=== PATIENT | male | born 1970 | race Caucasian/White ===

== ENCOUNTER 2020-09-23 13:03 | Observation (INO) ==
[2020-09-23] MEDS ORDERED: NITROGLYCERIN 2% OINTMENT 30GM TUBE EXT ONE (14:03)
[2020-09-23] MEDS ORDERED: ASPIRIN CHEW 324 MG PO STA (14:03)
[2020-09-23 14:13] LABS: Basophils # (auto) 0.02 K/uL (0-0.2); Basophils % (auto) 0.3 %; Eosinophils # (auto) 0.12 K/uL (0-0.5); Eosinophils % (auto) 1.7 %; Hematocrit (blood only) 44.5 % (42-52); Hemoglobin 15.2 g/dL (14.0-18.0); Immature Granulocytes # (auto) 0.02 K/uL (0.00-0.02); Immature Granulocytes % (auto) 0.3 %; Mean Corpuscular Hemoglobin 30.3 pg (25-34); Mean Corpuscular Hgb Conc 34.2 g/dL (32-36); Mean Corpuscular Volume 88.6 fL (80-100); Mean Platelet Volume 8.9 fL (7.4-10.4); Monocytes # (auto) 0.57 K/uL (0.11-0.59); Neutrophils # (auto) 3.91 K/uL (1.4-6.5); Neutrophils % (auto) 54.7 %; Platelet Count 173 K/uL (130-400); RDW Coefficient of Variation 13.3 % (11.5-14.5); RDW Standard Deviation 43.1 fL (36.4-46.3); Red Blood Count 5.02 M/uL (4.7-6.1); White Blood Count 7.14 K/uL (4.8-10.8)
[2020-09-23 14:33] LABS: Albumin Level 3.8 gm/dl (3.4-5.0); BUN Creatinine Ratio 16.3 (10-20); Calcium 8.6 mg/dl (8.5-10.1); Est GFR (African American) 87.1; Est GFR (Non-African American) 75.1
[2020-09-23 14:40] LABS: Albumin Globulin Ratio 1.2 (0.9-2); Bilirubin,Total 0.7 mg/dl (0.2-1); Globulin 3.1 gm/dl (2.5-4.0); Total Protein 6.9 gm/dl (6.4-8.2); Troponin I 0.145 ng/ml (0-0.045)
--- NOTE | 2020-09-23 14:43 | XRay Report ---
XR chest 1V portable CLINICAL HISTORY: Dyspnea COMPARISON STUDY: Chest radiograph December 21, 2007. FINDINGS: Lung volumes are normal. Lungs are clear. There is no pneumothorax or pleural effusion. Car diac size is at the upper limits of normal. Mediastinal contours are normal. There is no evidence for pulmonary edema. IMPRESSION: No acute cardiopulmonary findings. ACT 112: Negative or not required by law. Electronically signed by: Jeet Barajas M.D. 09/23/2020 2:42 PM
[2020-09-23] MEDS ORDERED: Heparin IV Adult Wt-Based Low-Dose WITH Bolus Protocol IV STA (14:49)
[2020-09-23] MEDS ORDERED: HEPARIN SODIUM/DEXTROSE 25,000 UNITS/500 ML BAG IV SCH (15:00)
[2020-09-23 15:28] LABS: Partial Thromboplastin Ratio 0.8; Partial Thromboplastin Time 23.6 Seconds (21.0-31.0); Prothrombin Time 10.3 Seconds (9.0-12.0)
[2020-09-23] MEDS ORDERED: Heparin BOLUS **ED Use Only IV STA (16:06)
[2020-09-23] MEDS ORDERED: niCARdipine HCL INJ 2.5 MG/ML 10 ML AMP ONE (16:55)
[2020-09-23] MEDS ORDERED: MIDAZOLAM HCL 1 MG/ML 2ML VIAL ONE (16:55)
[2020-09-23] MEDS ORDERED: HEPARIN (PORCINE) 1000 UNIT/ML 10 ML (CATH LAB USE ONLY) ONE ×2 (16:55→17:46)
[2020-09-23] MEDS ORDERED: NITROGLYCERIN/D5W 100MCG/ML 20ML SYR ONE (16:56)
[2020-09-23] MEDS ORDERED: fentaNYL citrate 100 MCG/2 ML VIAL ONE (16:56)
--- NOTE | 2020-09-23 17:16 | Pre Anesthesia Assessment ---
Date of Service September 23, 2020 Pre Sedation Assessment Vital Signs Temp Pulse Resp BP Pulse Ox 09/23/20 16:31 100 H 20 95 09/23/20 16:30 85 20 129/78 93 09/23/20 16:01 75 20 94 09/23/20 16:00 76 21 129/80 94 09/23/20 15:31 80 25 H 96 09/23/20 15:30 78 19 140/88 97 09/23/20 15:01 82 24 98 09/23/20 15:00 82 18 160/95 H 96 09/23/20 14:31 75 22 97 09/23/20 14:30 65 17 151/96 H 97 09/23/20 14:12 68 26 H 151/94 H 95 09/23/20 14:10 94 09/23/20 14:01 81 18 09/23/20 14:00 69 25 H 145/92 H 96 09/23/20 13:33 69 20 95 09/23/20 13:30 73 23 173/90 H 93 09/23/20 13:27 94 09/23/20 13:22 98.2 F 69 18 136/80 94 Cardiovascular RRR, no murmur, no edema Respiratory normal respiratory effort, lungs clear to auscultation Pre-Sedation Airway Assessment Smoking Status: Never smoker Hx Sleep Apnea: No Hx Difficult Intubation: No Short, Thick Neck: No Thyromental Distance: > or= 3.5 Finger Breadths Oral Cavity: + WNL Mallampati Class: III ASA: ASA3 Procedure Planning Contraindications for Sedation: none Current Medications Reviewed: Yes Notes The planned sedation has been discussed with the patient. Informed Consent was obtained. I have identified the patient, determined the appropriateness of sedation and have assessed the patient immediately prior to the procedure. All medicine(s) and interventions are by my order.
[2020-09-23] MEDS ORDERED: TICAGRELOR 90 MG TAB PO ONE (17:52)
[2020-09-23] MEDS ORDERED: ACETAMINOPHEN 325 MG TAB PO PRN (18:51)
[2020-09-23] MEDS ORDERED: ONDANSETRON INJ 2 MG/ML 2 ML VIAL IV PRN (18:51)
[2020-09-23] MEDS ORDERED: NITROGLYCERIN SL 0.4 MG/TAB TAB SL PRN (18:51)
--- NOTE | 2020-09-23 18:51 | Post Anesthesia Assessment ---
Date of Service September 23, 2020 Post Sedation Assessment Vital Signs Temp Pulse Pulse Resp BP BP Pulse Ox 09/23/20 18:47 65 18 128/75 92 09/23/20 16:31 100 H 20 95 09/23/20 16:30 85 20 129/78 93 09/23/20 16:01 75 20 94 09/23/20 16:00 76 21 129/80 94 09/23/20 15:31 80 25 H 96 09/23/20 15:30 78 19 140/88 97 09/23/20 15:01 82 24 98 09/23/20 15:00 82 18 160/95 H 96 09/23/20 14:31 75 22 97 09/23/20 14:30 65 17 151/96 H 97 09/23/20 14:12 68 26 H 151/94 H 95 09/23/20 14:10 94 09/23/20 14:01 81 18 09/23/20 14:00 69 25 H 145/92 H 96 09/23/20 13:33 69 20 95 09/23/20 13:30 73 23 173/90 H 93 09/23/20 13:27 94 09/23/20 13:22 98.2 F 69 18 136/80 94 Recovery Score Activity: Moves 4 extremities Respiration: Deep Breath/Cough Circulation: +/-20% PreAnes Value Consciousness: Fully Awake Oxygen Saturation: O2 needed for >90% Discharge Sedation Level of Care: Fast Track Phase II Post Sedation Plan On clinical assessment, the patient appears to have tolerated the sedation without complications. Patient is recovering as anticipated. Patient will continue to be monitored by nursing and may be discharged when sedation discharge criteria are met per below protocol. Upon Completions of procedure up to 15 minutes continue every 5 minute vital signs and the P.A.R. score; then discharge to a Phase I or Fast Track to Phase II per the following guidelines: * Discharge Patient to appropriate Phase II area if PAR is 8 or greater or retur n to pre- procedure baseline. The post - procedure orders will be as directed. * If PAR score is less than 8 or not return to pre-procedure baseline then patient will follow Phase I monitoring till PAR is reached for Phase II. The Phase I may be done in procedure room or may call to secure a Phase I area. * If naloxone or flumazenil are used for reversal, hold in Phase I for continued monitoring from when last reversal dose was given for a minimum of 60 minutes or longer pending the nurse and/or physician discretion of patient condition before discharge to Phase II. Please call the Sedation Physician to re-evaluate and complete post-note for discharge to Phase II area. Do NOT discharge from procedure sedation or Phase 1 until post- sedation evaluation note is complete by procedure /sedation MD Sedation Discharge Instructions to be given to the patient at discharge to home.
[2020-09-23] MEDS ORDERED: SODIUM CHLORIDE 0.9% 1000ML 1,000 ML IV SCH (19:00)
[2020-09-23] MEDS: METOPROLOL TARTRATE 25 MG TAB PO SCH (20:56)
[2020-09-23 22:46] LABS: Partial Thromboplastin Ratio 1.1; Partial Thromboplastin Time 29.4 Seconds (21.0-31.0)
--- NOTE | 2020-09-23 22:51 | Cardiology Consultation ---
Date of Consultation September 23, 2020 Assessment & Plan (1) NSTEMI (non-ST elevated myocardial infarction): 2. Type 2 diabetes Presentation consistent with NSTEMI and recommend proceeding with cardiac catheterization. Discussed risk and benefits, alternatives of procedure and is willing to proceed. Further recommendations pending findings of catheterization. History of Present Illness History of Present Illness Mr. Mcfadden is a very pleasant 50-year-old man seen in the emergency department for NSTEMI. No prior cardiac history. History of type 2 diabetes, GERD. No prior surgical history. Lifelong non-smoker. Intermittent exertional chest discomfort began approximately 3 weeks ago while out doing yard work. A few brief similar episodes until last 2 days when has had multiple episodes with less exertion. Describes episodes occurring yesterday which is walking. Again had an episode today while walking at work that persisted for approximately 30 minutes. In ED hypertensive to the 150s on presentation. No chest pain but ongoing left pain which resolved with nitroglycerin. Initial ECG showed normal sinus rhythm with subtle convex ST elevation in V1, V2, initial troponin elevated at 0.145. Family history: No premature CAD Social history: . No tobacco or significant alcohol. 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 [employer] Allergies Allergy/AdvReac Type Severity Reaction Status Date / Time Penicillins Allergy Unknown Verified 09/23/20 19:16 Home Medications Medication Instructions Recorded Confirmed Type alogliptin 25 mg PO QAM 09/23/20 09/23/20 History cholecalciferol (vitamin D3) 25 mcg PO DAILY 09/23/20 09/23/20 History metformin 1,000 mg PO BIDM 09/23/20 09/23/20 History omeprazole 20 mg PO QAM 09/23/20 09/23/20 History Patient History Medical History (Updated 09/23/20 @ 22:48 by Haja Mi MD) Abnormal blood chemistry Abnormal glucose Dermatitis Encounter for screening for malignant neoplasm of prostate Obesity Family History (Updated 04/12/19 @ 09:28 by Talisha Grant) Father Diabetes Hyperlipidemia Mother Asthma Brother No problems noted. 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 Beliefs That Will Affect Care: None marital status: Current Living Situation: Spouse current occupational status: employed Other Information That Helps Us Care for You: No Feels Safe at Home: Yes Safety Concerns: Feels Safe At This Time Assistive Devices: None Review of Systems Review of Systems: All systems reviewed & are unremarkable except as noted in HPI & below Physical Exam Physical Exam: General: Comfortable, no acute distress Eyes: Sclerae anicteric, extraocular movements intact HENT: Mask in place Lungs: Clear to auscultation bilaterally Cardiac: Regular rate and rhythm, no murmurs Vascular: 2+ radial, DP pulses Abdomen: Soft, nontender, nondistended, positive bowel sounds. Extremities: Well perfused, no peripheral edema Skin: No rashes or lesions. Neuro: Nonfocal Psych: Alert orient x3, normal affect and mood Results & Data ([facility]) Vital Signs (Past 12 Hours) Vital Signs Temp Pulse Resp BP Pulse Ox 09/23/20 16:31 100 H 20 95 09/23/20 16:30 85 20 129/78 93 09/23/20 16:01 75 20 94 09/23/20 16:00 76 21 129/80 94 09/23/20 15:31 80 25 H 96 09/23/20 15:30 78 19 140/88 97 09/23/20 15:01 82 24 98 09/23/20 15:00 82 18 160/95 H 96 09/23/20 14:31 75 22 97 09/23/20 14:30 65 17 151/96 H 97 09/23/20 14:12 68 26 H 151/94 H 95 09/23/20 14:10 94 09/23/20 14:01 81 18 09/23/20 14:00 69 25 H 145/92 H 96 09/23/20 13:33 69 20 95 09/23/20 13:30 73 23 173/90 H 93 09/23/20 13:27 94 09/23/20 13:22 98.2 F 69 18 136/80 94 PG Care Time/CCT Total # of Minutes Spent Total Time Spent with Patient: Total time spent is greater than 50% in coordination of care (as documented) at patient's floor/unit and/or counseling patient: Coding Level of Care Code 71972 Inpt Consult Level 4 Diagnoses NSTEMI (non-ST elevated myocardial infarction) I21.4
--- NOTE | 2020-09-23 23:06 | Cardiac Catheterization ---
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 Cardiac Status Clinical evaluation leading to the procedure CAD Presenation: Non STEMI Anginal Classification: CCS IV Heart Failure: No Cardiogenic Shock within 24 Hours: No Cardiac Arrest within 24 Hours: No Imaging Studies Past 6 Months: No Stress Studies Past 6 Months: No Diagnostic Physicians Name: London Mi MD Status: Urgent Closure Device Percutaneous Entry Location: Radial Closure Device: Radial Band Recommendations: PCI without planned CABG PCI Indication: PCI for high risk Non-YARON Lesion Segment Name: Proximal LAD Culprit Artery: Yes Stenosis Prior to Rx (%): 95 Chronic Total Occlusion: No IVUS: No FFR: No Pre-Procedure ZULMA Flow: 3 Previously Treated Lesion: No Lesion Complexity: Non-High/Non-C Lesion Length (mm): 15 Thrombus Present: Yes Bifurcation Lesion: Yes Guidewire Across Lesion: Stenosis Post-Procedure (%): 0 Post-Procedure ZULMA Flow: 3 Devices(s) Deployed: Yes Yes Intraprocedure Events Significant Disection: No Perforation: No Cardiac Cath Procedure Full Procedure Date September 23, 2020 Pre-Procedure Diagnosis Pre-Procedure Diagnosis: Non STEMI AUC Score AUC Score: 8 Post-Procedure Diagnosis Post-Procedure Diagnosis: Severe CAD, Successful PCI and Normal Intracardiac Pressures Procedure(s) Performed Procedure(s) Performed: Coronary Angiography, Left Heart Cath and Drug Eluting Stent Charging Car Operator London Mi MD Fingernail Technician(s) Connor Estimated Blood Loss Estimated Blood Loss: 10 Medication(s) Medication(s): Fentanyl, Heparin, Lidocaine 1%, Nicardipine, Nitroglycerin and Versed Medication(s): Ticagrelor Summary of Findings Indication: High risk NSTEMI Access: 6 Fr slender right radial artery Catheters: Hunter, EBU 3.5 Findings: LM -normal caliber, no significant disease LAD -medium caliber, 95% acute proximal stenosis, 20 to 30% mid segment disease, distal vessel wraps around apex Circumflex -large caliber, distal luminal irregularities. Large OM 2 without significant disease. RCA -dominant, large caliber, 20 to 30% distal disease extending into right PAV branch LVEDP -16 -- PCI -- Antithrombotic therapy: Heparin, ticagrelor Procedure: Left main cannulated with EBU 3.5 guide Histopath Tech 50 wire passed across lesion into distal vessel Proximal LAD lesion predilated with 2.5 compliant balloon Dilated lesion stented with 3.5 x 23 mm Xience Leana drug-eluting Stent post-dilated with 3.75 noncompliant balloon IC vasodilators administered for spasm Post procedure ZULMA 3 flow, stent well expanded with minimal residual stenosis and no apparent cardiac complications. Arterial Closure: TR band Summary: 1. Severe single vessel coronary artery disease -95% acute proximal LAD stenosis 2. Mild nonculprit coronary artery disease 20 to 30% distal RCA 20 to 30% mid LAD 3. Normal intracardiac filling pressure 4. Successful PCI of proximal LAD with single drug-eluting stent (3.5 x 23 mm Xience; postdilated with 3.75 NC). 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 Continue statin, and ASCVD risk factor modification Consult cardiac Rehab Hemodynamics Rest Ao:: 112/78/99 Final Ao: 109/74/90 LV: 123/16 Recommendations Recommendations: PCI without planned CABG Specimens Specimens: None Radiation Exposure (mGy) 2809 Contrast (mls) 140 Fluids (cc crystalloids) Fluids (cc crystalloids): 75 Drains Drains: None Anesthesia Moderate Procedural Complication(s) None Disposition PCU I attest to the content of the Intraoperative Record and any orders documented therein. Any exceptions are noted below. [facility] Card Cath Procedure Codes Cardiac Catheterization Procedure 1: Cardiovascular Cath Procedures: 38700 Coronaries and LHC (+/-LV) Moderate Sedation Procedure 1: Sedation/Anesthesia: 28689 Mod Sedation by the same physician;Init15 Min Child Age 5 & Up Procedure 2: Sedation/Anesthesia: 05036 Mod Sedation by the same physician; Ea [id number] Minutes Stenting Procedure 1: Cardiovascular Stent Procedures: 94668 Perc transcatheter placement of intracoronary stent(s), with ang PG Care Time/CCT Total # of Minutes Spent Total Time Spent with Patient: Total time spent is greater than 50% in coordination of care (as documented) at patient's floor/unit and/or counseling patient:
[2020-09-24 01:36] LABS: Appearance Urine Clear (Clear); Bilirubin Urine Negative (Negative); Blood Urine Negative (Negative); Color Urine Yellow; Glucose Urine UA Trace (Negative); Ketones Urine Trace (Negative); Leukocyte Esterase Urine Negative (Negative); Nitrite Urine Negative (Negative); Protein Urine Negative (Negative); Specific Gravity Urine 1.045 (1.000-1.030); Urobilinogen Urine Negative (Negative); pH Urine 7.5 (4.5-7.5)
--- NOTE | 2020-09-24 05:33 | Electrocardiogram Report ---
Test Reason : Blood Pressure : / mmHG Vent. Rate : 064 BPM Atrial Rate : 064 BPM P-R Int : 158 ms QRS Dur : 080 ms QT Int : 392 ms P-R-T Axes : 061 060 062 degrees QTc Int : 404 ms Normal sinus rhythm Nonspecific ST abnormality Abnormal ECG When compared with ECG of 21-DEC-2007 23:29, No significant change was found Confirmed by Karl Cavanaugh ([id number]) on 09/24/2020 5:33:05 AM Referred By: REFERRED SELF Confirmed By:Karl Cavanaugh
[2020-09-24] MEDS ORDERED: TICAGRELOR 90 MG TAB PO SCH ×3 (06:00→21:00)
--- NOTE | 2020-09-24 06:42 | Emergency Department Note ---
History of Present Illness General Chief complaint: Shortness of Breath/Dyspnea Stated complaint: SOB,CHEST TIGHTNESS Source: patient and RN notes reviewed Mode of arrival: ambulatory Limitations: no limitations History of Present Illness Provider complaint: Chest pain Maximum Pain Intensity: 2 This pt is a 50 yo male who presents to the ED with L CP just distal to the breast. He c/o a numb and tingling type discomfort in the L arm as well. 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 He has had intermittent symptoms since the end of Aug, with BENITEZ and diaphoresis. He rests when the symptoms occur, which typically resolves them. He denies recent illness, cough, fever, vomiting, diarrhea. Of note pr was recently dx as diabetic. Home Medications Medication Instructions Recorded Confirmed Type alogliptin 25 mg PO QAM 09/23/20 09/23/20 History cholecalciferol (vitamin D3) 25 mcg PO DAILY 09/23/20 09/23/20 History metformin 1,000 mg PO BIDM 09/23/20 09/23/20 History omeprazole 20 mg PO QAM 09/23/20 09/23/20 History Allergies Allergy/AdvReac Type Severity Reaction Status Date / Time Penicillins Allergy Unknown Verified 09/23/20 19:16 Past Med/Surg History Medical History Abnormal blood chemistry Abnormal glucose Dermatitis Encounter for screening for malignant neoplasm of prostate Obesity Family History Father Diabetes Hyperlipidemia Mother Asthma Brother No problems noted. 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 and A total of 10 systems reviewed and were otherwise negative Physical Exam Vital Signs Vital Signs - 24 hr 09/23/20 13:22 09/23/20 13:27 09/23/20 13:30 Temperature 36.8 C Temperature Source Oral Pulse Rate 69 73 Pulse Rate from SpO2 Sensor 71 Respiratory Rate 18 23 Blood Pressure 136/80 173/90 H Blood Pressure Mean 98 111 Pulse Oximetry 94 94 93 Oxygen Delivery Method Room Air Room Air Room Air Sepsis Recent Fever Within 48 Hours No Sepsis New/Unexplained Change in Mental Status N/A Sepsis Action Taken by Nursing No Action Required 09/23/20 13:33 09/23/20 14:00 09/23/20 14:01 Temperature Temperature Source Pulse Rate 69 69 81 Pulse Rate from SpO2 Sensor 69 Respiratory Rate 20 25 H 18 Blood Pressure 145/92 H Blood Pressure Mean 108 Pulse Oximetry 95 96 Oxygen Delivery Method Room Air Room Air Sepsis Recent Fever Within 48 Hours Sepsis New/Unexplained Change in Mental Status Sepsis Action Taken by Nursing 09/23/20 14:10 09/23/20 14:12 09/23/20 14:30 Temperature Temperature Source Pulse Rate 68 65 Pulse Rate from SpO2 Sensor 68 65 Respiratory Rate 26 H 17 Blood Pressure 151/94 H 151/96 H Blood Pressure Mean 108 104 Pulse Oximetry 94 95 97 Oxygen Delivery Method Room Air Room Air Room Air Sepsis Recent Fever Within 48 Hours Sepsis New/Unexplained Change in Mental Status Sepsis Action Taken by Nursing 09/23/20 14:31 09/23/20 15:00 09/23/20 15:01 Temperature Temperature Source Pulse Rate 75 82 82 Pulse Rate from SpO2 Sensor 74 84 81 Respiratory Rate 22 18 24 Blood Pressure 160/95 H Blood Pressure Mean 108 Pulse Oximetry 97 96 98 Oxygen Delivery Method Room Air Sepsis Recent Fever Within 48 Hours Sepsis New/Unexplained Change in Mental Status Sepsis Action Taken by Nursing 09/23/20 15:30 09/23/20 15:31 09/23/20 16:00 Temperature Temperature Source Pulse Rate 78 80 76 Pulse Rate from SpO2 Sensor 76 80 77 Respiratory Rate 19 25 H 21 Blood Pressure 140/88 129/80 Blood Pressure Mean 101 91 Pulse Oximetry 97 96 94 Oxygen Delivery Method Sepsis Recent Fever Within 48 Hours Sepsis New/Unexplained Change in Mental Status Sepsis Action Taken by Nursing 09/23/20 16:01 09/23/20 16:30 09/23/20 16:31 Temperature Temperature Source Pulse Rate 75 85 100 H Pulse Rate from SpO2 Sensor 75 84 96 H Respiratory Rate 20 20 20 Blood Pressure 129/78 Blood Pressure Mean 92 Pulse Oximetry 94 93 95 Oxygen Delivery Method Sepsis Recent Fever Within 48 Hours Sepsis New/Unexplained Change in Mental Status Sepsis Action Taken by Nursing Vital signs reviewed. General: Well-appearing 50 yo male, in no significant distress HEENT: No scleral icterus, PERRLA, neck supple. Cardiovascular: Regular rate and rhythm, no extra sounds. Pulmonary: Clear to auscultation bilaterally, normal work of breathing. Abdomen: Soft, obese, nondistended, positive bowel sounds. Musculoskeletal: no peripheral edema Neurologic: Patient awake alert and oriented x 3 Skin: Warm, dry, no rash Course Administered Medications Metoprolol Tartrate (Metoprolol Tartrate 25 Mg Tab) 25 mg PO BID [facility] Stop: 10/23/20 20:59 Last Admin: 09/23/20 20:56 Dose: 25 mg Documented by: [id number] Discontinued Medications Aspirin (Aspirin Chew 324 Mg) 324 mg PO NOW STA Stop: 09/23/20 14:04 Last Admin: 09/23/20 14:13 Dose: 324 mg Documented by: [id number] Fentanyl Citrate (Fentanyl Citrate 100 Mcg/2 Ml Vial) Confirm Administered Dose 100 mcg .ROUTE .STK-MED ONE Stop: 09/23/20 16:57 Last Admin: 09/23/20 23:59 Dose: Not Given Documented by: [id number] Heparin Sodium (Porcine) (Heparin Bolus Ed Use Only) 4,000 units IV NOW STA Stop: 09/23/20 16:07 Last Admin: 09/23/20 16:15 Dose: 4,000 units Documented by: [id number] Cosigned by: [id number] Heparin Sodium (Porcine) (Heparin (Porcine) 1000 Unit/Ml 10 Ml (Skate Shop Attendant Use Only)) Confirm Administered Dose 10,000 units .ROUTE .STK-MED ONE Stop: 09/23/20 16:56 Last Admin: 09/23/20 23:59 Dose: Not Given Documented by: [id number] Heparin Sodium (Porcine) (Heparin (Porcine) 1000 Unit/Ml 10 Ml (Skate Shop Attendant Use Only)) Confirm Administered Dose 10,000 units .ROUTE .STK-MED ONE Stop: 09/23/20 17:47 Last Admin: 09/24/20 00:00 Dose: Not Given Documented by: [id number] Heparin Sodium/Dextrose (Heparin Iv Low Dose With Bolus) 1 ea IV NOW STA; Protocol Stop: 09/23/20 14:50 Last Admin: 09/23/20 23:58 Dose: Not Given Documented by: [id number] Heparin Sodium/Sodium Chloride (Heparin In Nss Infusion 1000 Unit/500 Ml (2 U/Ml) Bag) Confirm Administered Dose 3,000 units IV .STK-MED ONE Stop: 09/23/20 16:57 Last Admin: 09/24/20 00:00 Dose: Not Given Documented by: [id number] Heparin Sodium/Dextrose (Heparin Sodium/Dextrose) 25,000 units in 500 mls @ 20 mls/hr IV .Q24H CHRIS; Protocol Stop: 10/23/20 14:59 Last Admin: 09/23/20 16:14 Dose: 1,000 units/hr, 20 mls/hr Documented by: [id number] Cosigned by: [id number] Sodium Chloride (Nss 1000ml) 1,000 mls @ 100 mls/hr IV .Q10H CHRIS Stop: 09/24/20 02:29 Last Infusion: 09/24/20 02:30 Dose: 0 mls/hr Documented by: [id number] Admin: 09/23/20 19:00 Dose: 100 mls/hr Documented by: [id number] Midazolam HCl (Midazolam Hcl 1 Mg/Ml 2ml Vial) Confirm Administered Dose 2 mg .ROUTE .STK-MED ONE Stop: 09/23/20 16:56 Last Admin: 09/23/20 23:59 Dose: Not Given Documented by: [id number] Nicardipine HCl (Nicardipine Hcl Inj 2.5 Mg/Ml 10 Ml Amp) Confirm Administered Dose 25 mg .ROUTE .STK-MED ONE Stop: 09/23/20 16:56 Last Admin: 09/23/20 23:58 Dose: Not Given Documented by: [id number] Nitroglycerin (Nitroglycerin 2% Ointment 30gm Tube) 1 inch EXT NOW ONE Stop: 09/23/20 14:04 Last Admin: 09/23/20 14:13 Dose: 1 inch Documented by: [id number] Nitroglycerin/Dextrose (Nitroglycerin/D5w 100mcg/Ml 20ml Syr) Confirm Administered Dose 2,000 mcg .ROUTE .STK-MED ONE Stop: 09/23/20 16:57 Last Admin: 09/24/20 00:00 Dose: Not Given Documented by: [id number] Ticagrelor (Ticagrelor 90 Mg Tab) Confirm Administered Dose 180 mg PO .Mindjet-Mompery ONE Stop: 09/23/20 17:53 Last Admin: 09/23/20 17:53 Dose: 180 mg Documented by: [id number] Ticagrelor (Ticagrelor 90 Mg Tab) 90 mg PO BID CHRIS Stop: 10/24/20 05:59 Last Admin: 09/24/20 05:57 Dose: 90 mg Documented by: [id number] Critical Care Time Critical Care Time: Yes Total Critical Care Time: 40 The high probability of a clinically significant, sudden or life threatening deterioration required my full and direct attention, intervention and personal management. The aggregate critical care time was 40 minutes. This time is in addition to time spent performing reported procedures but includes the following: [x] Data Review and interpretation [x] Patient assessment and monitoring of vital signs [x] Documentation [x] Medication orders and management Medical Decision Making Differential Diagnosis Cardiac ischemia, aortic dissection, pulmonary embolism, pneumothorax, pneumonia, pericarditis, myocarditis, esophageal rupture, GERD, cholecystitis, pancreatitis, musculoskeletal, as well as other pathologies. Medical Records Attestation: I reviewed the patient's medical records. Home Medications Current Medication List: was personally reviewed by me Laboratory Data Attestation: I reviewed the patient's lab results. Result diagrams: 09/23/20 14:05 09/23/20 14:05 Lab Results 09/23/20 09/23/20 09/23/20 Range/Units 14:05 14:05 14:05 WBC 7.14 (4.8-10.8) K/uL RBC 5.02 (4.7-6.1) M/uL Hgb 15.2 (14.0-18.0) g/dL Hct 44.5 (42-52) % MCV 88.6 (80-100) fL MCH 30.3 (25-34) pg MCHC 34.2 (32-36) g/dL RDW Std Deviation 43.1 (36.4-46.3) fL RDW Coeff of Luis 13.3 (11.5-14.5) % Plt Count 173 (130-400) K/uL MPV 8.9 (7.4-10.4) fL Immature Gran % (Auto) 0.3 % Neut % (Auto) 54.7 % Lymph % (Auto) 35.0 % [place] % (Auto) 8.0 % Eos % (Auto) 1.7 % Baso % (Auto) 0.3 % Neut # (Auto) 3.91 (1.4-6.5) K/uL Lymph # (Auto) 2.50 (1.2-3.4) K/uL [place] # (Auto) 0.57 (0.11-0.59) K/uL Eos # (Auto) 0.12 (0-0.5) K/uL Baso # (Auto) 0.02 (0-0.2) K/uL Immature Gran # (Auto) 0.02 (0.00-0.02) K/uL PT Cancelled INR Cancelled APTT Cancelled PTT Ratio Cancelled Sodium 138 (136-145) mmol/L Potassium 4.0 (3.5-5.1) mmol/L Chloride 105 (98-107) mmol/L Carbon Dioxide 27 (21-32) mmol/L Anion Gap 6.0 (3-11) BUN 18 (7-18) mg/dl Creatinine 1.12 (0.6-1.4) mg/dl Est Cr Clr Drug Dosing 107.0 ml/min Est GFR ( Amer) 87.1 Est GFR (Non-Af Amer) 75.1 BUN/Creatinine Ratio 16.3 (10-20) Glucose 186 H (70-99) mg/dl Calcium 8.6 (8.5-10.1) mg/dl Magnesium 2.0 (1.8-2.4) mg/dl Total Bilirubin 0.7 (0.2-1) mg/dl AST 30 (15-37) U/L ALT 42 (12-78) U/L Alkaline Phosphatase 80 (45-117) U/L Troponin I 0.145 H* (0-0.045) ng/ml Total Protein 6.9 (6.4-8.2) gm/dl Albumin 3.8 (3.4-5.0) gm/dl Globulin 3.1 (2.5-4.0) gm/dl Albumin/Globulin Ratio 1.2 (0.9-2) COVID-19 Eval Order SARS-CoV-2, RNA, NAAT (NEGATIVE) 12/14/20 12/14/20 12/14/20 Range/Units 15:04 16:30 16:30 WBC (4.8-10.8) K/uL RBC (4.7-6.1) M/uL Hgb (14.0-18.0) g/dL Hct (42-52) % MCV (80-100) fL MCH (25-34) pg MCHC (32-36) g/dL RDW Std Deviation (36.4-46.3) fL RDW Coeff of Luis (11.5-14.5) % Plt Count (130-400) K/uL MPV (7.4-10.4) fL Immature Gran % (Auto) % Neut % (Auto) % Lymph % (Auto) % [place] % (Auto) % Eos % (Auto) % Baso % (Auto) % Neut # (Auto) (1.4-6.5) K/uL Lymph # (Auto) (1.2-3.4) K/uL [place] # (Auto) (0.11-0.59) K/uL Eos # (Auto) (0-0.5) K/uL Baso # (Auto) (0-0.2) K/uL Immature Gran # (Auto) (0.00-0.02) K/uL PT 10.3 INR 1.0 APTT 23.6 PTT Ratio 0.8 Sodium (136-145) mmol/L Potassium (3.5-5.1) mmol/L Chloride (98-107) mmol/L Carbon Dioxide (21-32) mmol/L Anion Gap (3-11) BUN (7-18) mg/dl Creatinine (0.6-1.4) mg/dl Est Cr Clr Drug Dosing ml/min Est GFR ( Amer) Est GFR (Non-Af Amer) BUN/Creatinine Ratio (10-20) Glucose (70-99) mg/dl Calcium (8.5-10.1) mg/dl Magnesium (1.8-2.4) mg/dl Total Bilirubin (0.2-1) mg/dl AST (15-37) U/L ALT (12-78) U/L Alkaline Phosphatase (45-117) U/L Troponin I (0-0.045) ng/ml Total Protein (6.4-8.2) gm/dl Albumin (3.4-5.0) gm/dl Globulin (2.5-4.0) gm/dl Albumin/Globulin Ratio (0.9-2) COVID-19 Eval Order Covid19 [facility] SARS-CoV-2, RNA, NAAT NEGATIVE (NEGATIVE) Imaging Data Radiologist's Impression: XR chest 1V portable CLINICAL HISTORY: Dyspnea COMPARISON STUDY: Chest radiograph December 21, 2007. FINDINGS: Lung volumes are normal. Lungs are clear. There is no pneumothorax or pleural effusion. Cardiac size is at the upper limits of normal. Mediastinal contours are normal. There is no evidence for pulmonary edema. IMPRESSION: No acute cardiopulmonary findings. ACT 112: Negative or not required by law. Electronically signed by: Jeet Barajas M.D. 09/23/2020 2:42 PM Dictated: 09/23/201440Transcribed: 09/23/201440 ECG Data Attestation: I personally reviewed and interpreted this ECG as follows: Indication: + chest pain Rate (beats per minute): 64 Rhythm: + normal sinus ECG Intervals/blocks: + Normal QT-c ECG [place]: + Normal ECG ST segments: + Nonspecific ST abnormalities (anterior) ECG Findings: + Other (no PAC, no PVC) Blood Pressure Blood Pressure Findings: Elevated blood pressure Blood Pressure Disposition: further management by hospitalist MDM Narrative This pt was evaluated and appeared to be in non distress. An order for cardiac monitoring was placed and the pt was noted to be in a NSR at 73 bpm. IV access was obtained and lab work was drawn. EKG reveals nonspecific changes in anterior leads. Pt was given NTG paste which alleviated L arm discomfort however a mild L breast pain remained. Trop was + at 0.145. CXR was negative. An IV heparin drip was hung, pt was dicussed with the [facility] hospital[place] service as well as Dr. Mi of interventional cardiology who will evaluate the pt. Pt is aware of the plan and agrees. Impression & Plan NSTEMI (non-ST elevated myocardial infarction), ACS (acute coronary syndrome) Discharge Plan Visit Data Chief Complaint: Shortness of Breath/Dyspnea Stated Complaint: SOB,CHEST TIGHTNESS ED Provider: Francy Napier Discharge Problem: NSTEMI (non-ST elevated myocardial infarction), ACS (acute coronary syndrome) Patient Disposition: Admitted As Inpatient Discharge Instructions Interventions: ED Discharge Assessment Last Done: 09/23/20 18:02
[2020-09-24] MEDS: METOPROLOL TARTRATE 25 MG TAB PO SCH (08:53)
[2020-09-24] MEDS ORDERED: ATORVASTATIN 40 MG TAB PO SCH (09:00)
[2020-09-24] MEDS ORDERED: ASPIRIN 81 MG ECTAB PO SCH (09:00)
[2020-09-24] MEDS ORDERED: lisinopril 5 MG TAB PO SCH (09:00)
--- NOTE | 2020-09-24 10:53 | Discharge Summary ---
Date of Service September 24, 2020 Admission HPI Per Admitting Provider Mr. Mcfadden is a very pleasant 50-year-old man seen in the emergency department for NSTEMI. No prior cardiac history. History of type 2 diabetes, GERD. No prior surgical history. Lifelong non-smoker. Intermittent exertional chest discomfort began approximately 3 weeks ago while out doing yard work. A few brief similar episodes until last 2 days when has had multiple episodes with less exertion. Describes episodes occurring yesterday which is walking. Again had an episode today while walking at work that persisted for approximately 30 minutes. In ED hypertensive to the 150s on presentation. No chest pain but ongoing left pain which resolved with nitroglycerin. Initial ECG showed normal sinus rhythm with subtle convex ST elevation in V1, V2, initial troponin elevated at 0.145. Family history: No premature CAD Social history: . No tobacco or significant alcohol. 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 Severe single vessel coronary artery disease -95% acute proximal LAD stenosis 2. Mild nonculprit coronary artery disease 20 to 30% distal RCA 20 to 30% mid LAD 3. Normal intracardiac filling pressure 4. Successful PCI of proximal LAD with single drug-eluting stent (3.5 x 23 mm Xience; postdilated with 3.75 NC). Discharge Data Consultations 09/23/20 15:21 ED Decision to Admit Stat 09/23/20 18:53 Consult Cardiac Rehabilitation Routine Procedures Performed Operation Date: 09/23/20 16:45 Actual Procedures s Drug Eluting Stent SGl Vessel - Haja Mi MD s Cineradiography w/Routine Exam - Haja Mi MD p Cath, Left with Cors and Vent - Haja Mi MD Hospital Course (1) NSTEMI (non-ST elevated myocardial infarction): Patient presented with accelerating anginal symptoms. Mild elevated troponin on presentation with dynamic ST changes on ECG and in the setting of ongoing chest/left arm pain taken urgently for cardiac catheterization which revealed an acute 95% proximal LAD stenosis. Minimal nonculprit vessel disease. Treated with a single drug-eluting stent to proximal LAD. Procedure uncomplicated. Post procedure admitted for observation to telemetry. No additional chest/arm pain. Electrically stable on telemetry. No apparent access site complications. Echocardiogram showed preserved LV function with apical hypokinesis. No significant valvular disease. Discharged home on post procedure day 1. Started on DAPT with aspirin, ticagrelor. Follow-up with cardiology in 2 weeks. Discuss cardiac rehab at that time. Discharge Instructions Home Medications alogliptin 25 mg PO QAM 09/23/20 [History Confirmed 09/23/20] cholecalciferol (vitamin D3) 25 mcg PO DAILY 09/23/20 [History Confirmed 09/23/20] metformin 1,000 mg PO BIDM 09/23/20 [History Confirmed 09/23/20] omeprazole 20 mg PO QAM 09/23/20 [History Confirmed 09/23/20] aspirin 81 mg PO QAM #30 tab 09/24/20 [Rx] atorvastatin 80 mg PO QAM #30 tab 09/24/20 [Rx] lisinopril [Zestril] 5 mg PO QAM #30 tab 09/24/20 [Rx] metoprolol tartrate 25 mg PO BID #60 tab 09/24/20 [Rx] nitroglycerin [Nitrostat] 0.4 mg SUBLINGUAL PRN PRN #30 tab 09/24/20 [Rx] ticagrelor [Brilinta] 90 mg PO BID #60 tab 09/24/20 [Rx] Coding Level of Care Code 07348 OBS Care - Discharge Diagnoses NSTEMI (non-ST elevated myocardial infarction) I21.4
--- NOTE | 2020-09-24 18:13 | XCELERA ---
[id number]
== END 2020-09-24 12:00 | disposition home or self-care (01) ==
LOC: ED 13:03 → 2S 15:30 → CC 15:30 → SUATTDRO 17:14